=== PATIENT | male | born 1945 | race Caucasian/White ===

== ENCOUNTER 2016-07-26 13:21 | Inpatient (IN) | payer MEDICARE, MEDICAID ==
[~2016-07-26 13:21] MED LIST: ACETAMINOPHEN325 MG PO; ADVAIR 25028 BLISTE1 PO; ALBUTEROL I0.5 ML/EA AERO NEB; ALBUTEROL INH 0.3 ML AERO NEB; ALBUTEROL SULF8.5 G1 IH; ALDACTONE25 MG PO; ASPIRIN81 M1 PO; ATIVAN0.5 M1 PO; ATIVAN1 M1 PO; CHEMOTHERAPY; COREG3.125 MG PO; COREG6.25 M1 PO; COUMADIN2 M1 PO; COUMADIN3 M1 PO; COUMADIN5 M1 PO; DULCOLAX10 MG PR; KLOR-CON M2020 MEQ PO; LASIX40 MG PO; LIPITOR10 MG PO; LIQUICEL PO; LISINOPRIL2.5 MG PO; LOVENOX80 MG/0.8 SQ; MAG-AL PLUS XS30 ML PO; MICRO-K10 MEQ PO; MILK OF MAGNESIA PO; MIRALAX17 G2 PO; MUCINEX600 MG PO; NAUSEA MED; NEURONTIN100 M1 PO; NICODERM14 MG/PAT1 TD; NITROSTAT0.4 M1 SL; NORVASC5 M2 PO; PACERONE200 MG PO; PLAVIX75 M1 PO; PREPARATION H PR; PRINIVIL5 M1 PO; RANITIDINE HCL150 M3 PO; ROBITUSSIN-AC5 ML PO; SENNA PLUS TAB1 EACH PO; SPIRONOLACTONE25 M1 PO; SYMBICORT 16010.2 GM IH; TYLENOL325 M2 PO; ZESTRIL2.5 MG PO; ZOLOFT50 M1 PO; [UNRECOGNIZED DRUG - REMARK]
[2016-07-26 14:10] LABS: INR 1.4 INR (0.9-1.1); PROTHROMBIN TIME 15.9 SECONDS (9.0-13.6)
[2016-07-27 08:54] LABS: BASO % 0.1 % (0-2); EOS % 0.1 % (0-7); LYMPH % 6.5 % (20-45); LYMPH ABSOLUTE COUNT 1.1 tho/cmm (0.8-4.5); MCH (MEAN CORPUSCULAR HGB) 31.3 pg (28.0-32.0); MCHC MEAN CORPUSCULAR HGB CONC 32.5 % (32.0-36.0); MCV (MEAN CELL VOLUME) 96.4 fl (82.0-96.0); MEAN PLATELET VOLUME 11.2 cmc (9.4-12.4); MONO % 4.8 % (0-12); MONOCYTE ABSOLUTE COUNT 0.8 tho/cmm (0.0-1.2); NEUTROPHIL ABSOLUTE COUNT 15.2 tho/cmm (1.6-8.0); NEUTROPHIL-AUTOMATED 15.2 tho/cmm (1.6-8.0); NEUTROPHILS % 88.5 % (40-80); PLATELET COUNT 197 tho/cmm (150-450); RED BLOOD COUNT 4.15 mil/cmm (4.40-5.70); RED CELL DISTRIBUTION WIDTH 13.3 % (12.4-16.4); WHITE BLOOD COUNT 17.1 tho/cmm (4.0-10.0)
[2016-07-27 09:01] LABS: ANION GAP 12 mmol/L (0-20); BLOOD UREA NITROGEN 17 mg/dl (6-24); CALCIUM 8.2 mg/dl (8.5-10.5); CARBON DIOXIDE-VENOUS 25 mmol/L (22-32); CHLORIDE 107 mmol/l (96-110); CREATININE 1.16 mg/dl (0.60-1.30); GLUCOSE 155 mg/dL (70-110); POTASSIUM 4.2 mmol/L (3.7-5.1); SODIUM 140 mmol/L (135-145); eGFR VALUE FOR BLACK 72 mL/Min
[2016-08-01] MEDS ORDERED: MUPIROCIN22 G2 TP (14:02)
[2016-08-01] MEDS ORDERED: NYSTATIN TP (14:04)
== END 2016-08-01 16:05 | DRG 38 ==
LOC: SHSB 13:21 → ORW 16:02 → PACU 18:55 → PCUA 19:59 → PACU 07-27 08:17 → PCUA 07-27 10:30
PROVIDERS: ADMIT Surgery Vascular Surgery
PROC: 03CL0ZZ Extirpation of Matter from Left Internal Carotid Artery, Open Approach (ICD-10-PCS; principal; 2016-07-26)
PROC: 0W360ZZ Control Bleeding in Neck, Open Approach (ICD-10-PCS; 2016-07-27)
PROC: 0JC40ZZ Extirpation of Matter from Right Neck Subcutaneous Tissue and Fascia, Open Approach (ICD-10-PCS; 2016-07-27)
DX: I65.22 Occlusion and stenosis of left carotid artery (principal); L76.32 Postprocedural hematoma of skin and subcutaneous tissue following other procedure; F01.50 Vascular dementia, unspecified severity, without behavioral disturbance, psychotic disturbance, mood disturbance, and anxiety; J44.9 Chronic obstructive pulmonary disease, unspecified; I48.2 Chronic atrial fibrillation; Y92.239 Unspecified place in hospital as the place of occurrence of the external cause; I69.319 Unspecified symptoms and signs involving cognitive functions following cerebral infarction; I25.10 Atherosclerotic heart disease of native coronary artery without angina pectoris; Z87.891 Personal history of nicotine dependence; R13.10 Dysphagia, unspecified; Z79.82 Long term (current) use of aspirin; Z79.02 Long term (current) use of antithrombotics/antiplatelets; I25.5 Ischemic cardiomyopathy; I25.2 Old myocardial infarction; Z85.72 Personal history of non-Hodgkin lymphomas; M19.90 Unspecified osteoarthritis, unspecified site; F41.9 Anxiety disorder, unspecified; K21.9 Gastro-esophageal reflux disease without esophagitis
CPT/HCPCS: C2628; G8996-GN-CL; G8997-GN-CJ; J0690; J1580; J1644; J2270; J2405; J2795; J7030; J7040